=== PATIENT | female | born 1975 | race African-American/Black ===

== ENCOUNTER 2017-11-29 11:20 | Inpatient (IN) | payer OTHER ==
[2017-11-29 12:09] VITALS: BMI 32.8
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
[2017-11-29] MEDS ORDERED: chlordiazePOXIDE HCL 25 MG CAPSULE PO PRN (13:01)
[2017-11-29] MEDS ORDERED: NICOTINE POLACRILEX 2 MG GUM BUC PRN (13:01)
[2017-11-29] MEDS ORDERED: P-EPHED 60MG/TRIPROLIDI 2.5MG TABLET PO PRN (13:01)
[2017-11-29] MEDS ORDERED: MAG HYDROX/AL HYDROX/SIMETH 30 ML UNIT-DOSE CUP PO PRN (13:01)
[2017-11-29] MEDS ORDERED: LOPERAMIDE HCL 2 MG CAPSULE PO PRN (13:01)
[2017-11-29] MEDS ORDERED: MAGNESIUM HYDROX 2400MG/30ML ORAL SUSPENSION 30 ML CUP PO PRN (13:01)
[2017-11-29] MEDS ORDERED: chlordiazePOXIDE HCL 25 MG CAPSULE PO ONE (13:01)
[2017-11-29] MEDS ORDERED: MAGNESIUM CITRATE 300 ML BOTTLE PO PRN (13:01)
[2017-11-29] MEDS ORDERED: MENTHOL/PHENOL 1 EACH UD MM PRN (13:01)
[2017-11-29] MEDS ORDERED: guaiFENesin/D-METHORPHAN HB 10 ML UNIT-DOSE CUPS PO PRN (13:01)
[2017-11-29] MEDS ORDERED: BUDESONIDE/FORMETEROL FUMARATE 80/4.5 mcg INHALER IH SCH (14:00)
[2017-11-29] MEDS ORDERED: METHADONE HCL 10 MG TABLET (FOR DETOX USE ONLY) PO ONE ×2 (14:00→23:00)
[2017-11-29] MEDS: NICOTINE 14 MG/24 HOURS TOPICAL PATCH TD SCH (15:17)
--- NOTE | 2017-11-29 17:24 | EKG ---
Test Reason : Blood Pressure : / mmHG Vent. Rate : 072 BPM Atrial Rate : 072 BPM P-R Int : 124 ms QRS Dur : 096 ms QT Int : 410 ms P-R-T Axes : 060 064 054 degrees QTc Int : 448 ms NORMAL SINUS RHYTHM POSSIBLE LEFT ATRIAL ENLARGEMENT BORDERLINE ECG NO PREVIOUS ECGS AVAILABLE Confirmed by KEVIN TRIVEDI, MADDY ([id number]) on 11/29/2017 5:24:23 PM Referred By: Confirmed By:MADDY BROWN MD
[2017-11-29] MEDS: chlordiazePOXIDE HCL 25 MG CAPSULE PO SCH ×2 (18:52→22:09)
[2017-11-29 20:18] LABS: URINE APPEARANCE TURBID; URINE BILIRUBIN NEGATIVE (<2.0 mg/dL); URINE COLOR AMBER; URINE GLUCOSE (UA) NEGATIVE (NEGATIVE); URINE KETONE NEGATIVE (NEGATIVE); URINE LEUK ESTERASE TRACE (NEGATIVE); URINE NITRITE NEGATIVE (NEGATIVE); URINE PROTEIN NEGATIVE (NEGATIVE); URINE UROBILINOGEN NEGATIVE mg/dL (0.2-1.0)
[2017-11-29 20:33] LABS: CALCIUM OXALATE CRYSTALS RARE /hpf (NONE SEEN); EPI CELLS RARE /HPF (FEW); URINE HYALINE CAST 1 /lpf; URINE MUCUS MODERATE
[2017-11-29] MEDS: THIAMINE HCL 100 MG TABLET (FP) PO SCH (22:09)
[2017-11-30] MEDS: chlordiazePOXIDE HCL 25 MG CAPSULE PO SCH ×4 (05:27→22:37)
[2017-11-30] MEDS ORDERED: BACLOFEN 10 MG TABLET (FP) PO ONE (09:17)
[2017-11-30] MEDS ORDERED: METHADONE HCL 10 MG TABLET (FOR DETOX USE ONLY) PO SCH (10:00)
[2017-11-30 10:39] LABS: HEMATOCRIT 35.6 % (32.4-45.2); HEMOGLOBIN 11.4 GM/dL (10.7-15.3); MCH 30.2 pg (25.7-33.7); MCHC 32.1 g/dl (32.0-36.0); MEAN CELL VOLUME 94.1 fl (80-96); MEAN PLT VOLUME 8.5 fl (7.5-11.1); PLATELET COUNT 303 K/MM3 (134-434); RBC 3.79 M/mm3 (3.60-5.2); RDW 14.7 % (11.6-15.6); WHITE BLOOD COUNT 6.7 K/mm3 (4.0-10.0)
[2017-11-30] MEDS: PRENATAL VITAMINS W/ FOLIC ACID TABLET (FP) PO SCH (10:53)
[2017-11-30] MEDS: NICOTINE 14 MG/24 HOURS TOPICAL PATCH TD SCH (10:54)
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
[2017-11-30 11:43] LABS: ALK PHOS 61 U/L (45-117); ANION GAP 6 MMOL/L (8-16); BILIRUBIN,TOTAL 0.3 mg/dL (0.2-1); BLOOD UREA NITROGEN 8 mg/dL (7-18); CALCIUM 8.5 mg/dL (8.5-10.1); CHLORIDE 105 mmol/L (98-107); CO2 28 mmol/L (21-32); CREATININE 0.7 mg/dL (0.55-1.3); GLUCOSE,RANDOM 101 mg/dL (74-106); SGOT/AST 27 U/L (15-37); SGPT/ALT 31 U/L (13-61); SODIUM 139 mmol/L (136-145); TOT PROT 6.4 g/dl (6.4-8.2)
--- NOTE | 2017-11-30 13:42 | PN ---
[facility] CIWA - CIWA Score Nausea/Vomitin-No Nausea/No Vomiting Muscle Tremors: 4-Moderate,w/Arms Extend Anxiety: 3 Agitation: 3 Paroxysmal Sweats: 1-Minimal Palms Moist Orientation: 0-Oriented Tacttile Disturbances: 0-None Auditory Disturbances: 0-None Visual Disturbances: 0-None Headache: 1-Very Mild CIWA-Ar Total Score: 12 [facility] COWS - Scale Resting Pulse: 0= [place] 80 or Below Sweatin= Chills/Flushing Restless Observation: 1= Difficult to Sit Still Pupil Size: 0= Normal to Room Light Bone or Joint Aches: 1= Mild Discomfort Runny Nose/ Eye Tearin= Nasal Congestion GI Upset > 30mins: 2= Nausea/Diarrhea Tremor Observation of Outstretched Hands: 2= Slight Tremor Visible Yawning Observation: 1= 1-2x During Session Anxiety or Irritability: 1=Feels Anxious/Irritable Goose Flesh Skin: 3=Piloerection COWS Score: 13 [facility] Progress Note (SOAP) Subjective: muscle ache back pain sweat tremor trouble sleep at night Objective: 11/30/17 13:41 Vital Signs Temperature 97.9 F 11/30/17 10:35 Pulse Rate 67 11/30/17 10:35 Respiratory Rate 18 11/30/17 10:35 Blood Pressure 122/73 11/30/17 10:35 O2 Sat by Pulse Oximetry (%) Laboratory Last Values WBC 6.7 K/mm3 (4.0-10.0) 11/30/17 07:40 RBC 3.79 M/mm3 (3.60-5.2) 11/30/17 07:40 Hgb 11.4 GM/dL (10.7-15.3) 11/30/17 07:40 Hct 35.6 % (32.4-45.2) 11/30/17 07:40 MCV 94.1 fl (80-96) 11/30/17 07:40 MCH 30.2 pg (25.7-33.7) 11/30/17 07:40 MCHC 32.1 g/dl (32.0-36.0) 11/30/17 07:40 RDW 14.7 % (11.6-15.6) 11/30/17 07:40 Plt Count 303 K/MM3 (134-434) 11/30/17 07:40 MPV 8.5 fl (7.5-11.1) 11/30/17 07:40 Sodium 139 mmol/L (136-145) 11/30/17 07:40 Potassium 4.0 mmol/L (3.5-5.1) 11/30/17 07:40 Chloride 105 mmol/L (98-107) 11/30/17 07:40 Carbon Dioxide 28 mmol/L (21-32) 11/30/17 07:40 Anion Gap 6 MMOL/L (8-16) L 11/30/17 07:40 BUN 8 mg/dL (7-18) 11/30/17 07:40 Creatinine 0.7 mg/dL (0.55-1.3) 11/30/17 07:40 Creat Clearance w eGFR > 60 (>60) 11/30/17 07:40 Random Glucose 101 mg/dL (74-106) 11/30/17 07:40 Calcium 8.5 mg/dL (8.5-10.1) 11/30/17 07:40 Total Bilirubin 0.3 mg/dL (0.2-1) 11/30/17 07:40 AST 27 U/L (15-37) 11/30/17 07:40 ALT 31 U/L (13-61) 11/30/17 07:40 Alkaline Phosphatase 61 U/L (45-117) 11/30/17 07:40 Total Protein 6.4 g/dl (6.4-8.2) 11/30/17 07:40 Albumin 3.0 g/dl (3.4-5.0) L 11/30/17 07:40 Urine Color Pamela 11/29/17 16:55 Urine Appearance Turbid 11/29/17 16:55 Urine pH 5.0 (5.0-8.0) 11/29/17 16:55 Ur Specific [place] 1.019 (1.010-1.035) 11/29/17 16:55 Urine Protein Negative (NEGATIVE) 11/29/17 16:55 Urine Glucose (UA) Negative (NEGATIVE) 11/29/17 16:55 Urine Ketones Negative (NEGATIVE) 11/29/17 16:55 Urine Blood 1+ (NEGATIVE) H 11/29/17 16:55 Urine Nitrite Negative (NEGATIVE) 11/29/17 16:55 Urine Bilirubin Negative (<2.0 mg/dL) 11/29/17 16:55 Urine Urobilinogen Negative mg/dL (0.2-1.0) 11/29/17 16:55 Ur Leukocyte Esterase Trace (NEGATIVE) 11/29/17 16:55 Urine WBC (Auto) 17 /hpf (3-5) 11/29/17 16:55 Urine RBC (Auto) 1 /hpf (0-3) 11/29/17 16:55 Ur Epithelial Cells Rare /HPF (FEW) 11/29/17 16:55 Calcium Oxalate Crystal Rare /hpf (NONE SEEN) 11/29/17 16:55 Hyaline Casts 1 /lpf 11/29/17 16:55 Urine Mucus Moderate 11/29/17 16:55 Valproic Acid < 3.0 ug/ml (50-100) L 11/30/17 09:20 RPR Titer Nonreactive (NONREACTIVE) 11/30/17 07:40 HIV 1&2 Antibody Screen Negative 11/30/17 07:40 HIV P24 Antigen Negative 11/30/17 07:40 lab noted Assessment: 11/30/17 13:45 withdrawal sx Plan: continue detox
[2017-11-30] MEDS: CITALOPRAM HYDROBROMIDE 20 MG TABLET (FP) PO SCH (16:16)
[2017-11-30] MEDS: GABAPENTIN 100 MG CAPSULE (FP) PO SCH (16:16)
[2017-11-30] MEDS: MONTELUKAST NA 10 MG TABLET PO SCH (17:53)
[2017-11-30] MEDS: THIAMINE HCL 100 MG TABLET (FP) PO SCH (22:38)
[2017-11-30] MEDS: ACETAMINOPHEN 325 MG TABLET (FP) PO PRN (22:40)
[2017-12-01] MEDS: chlordiazePOXIDE HCL 25 MG CAPSULE PO SCH ×2 (06:43→11:13)
[2017-12-01] MEDS: CITALOPRAM HYDROBROMIDE 20 MG TABLET (FP) PO SCH (11:13)
[2017-12-01] MEDS: PRENATAL VITAMINS W/ FOLIC ACID TABLET (FP) PO SCH (11:13)
[2017-12-01] MEDS: GABAPENTIN 100 MG CAPSULE (FP) PO SCH (11:13)
[2017-12-01] MEDS: METHADONE HCL 5 MG TABLET (FOR DETOX USE ONLY) PO SCH (11:14)
[2017-12-01] MEDS: NICOTINE 14 MG/24 HOURS TOPICAL PATCH TD SCH (11:16)
[2017-12-01] MEDS ORDERED: DIVALPROEX SODIUM 250 MG TABLET E.C. PO STA (14:17)
--- NOTE | 2017-12-01 14:22 | PN ---
Psychiatric Progress Note Vital Signs: Vital Signs Period Temp Pulse Resp BP Sys/[place] Pulse Ox Last 24 Hr 96.5 F-98.2 F 68-86 16-20 94-136/57-79 Date of Session: 12/01/17 Chief Complaint:: My Depakote order HPI: Patient reports taking prior to admission: Celexa 20mg p[oqd. Depakote 250mg po bid. Trazodone 50m,g po qhs. Patioent refusing to restart Trazodone during Detox protocol Current Medications: Active Medications Generic Name Dose Route Start Last Admin Trade Name Freq PRN Reason Stop Dose Admin Acetaminophen 650 mg 11/29/17 13:01 11/30/17 22:40 Tylenol - PO 650 mg Q4H PRN Administration FEVER Al Hydroxide/Mg Hydroxide 30 ml 11/29/17 13:01 Mylanta Oral Suspension - PO Q6H PRN DYSPEPSIA Chlordiazepoxide HCl 15 mg 12/01/17 17:00 Librium - PO 12/02/17 11:01 [id number] NOEMI Chlordiazepoxide HCl 10 mg 12/02/17 17:00 Librium - PO 12/03/17 11:01 [id number] NOEMI Chlordiazepoxide HCl 25 mg 11/29/17 13:01 Librium - PO 12/02/17 13:01 Q4H PRN WITHDRAWAL(CONT SUBST) Citalopram Hydrobromide 20 mg 11/30/17 15:00 12/01/17 11:13 Celexa - PO 20 mg DAILY NOEMI Administration Divalproex Sodium 250 mg 12/01/17 22:00 Depakote - PO BID NOEMI Divalproex Sodium 250 mg 12/01/17 14:17 Depakote - PO 12/01/17 14:18 ONCE STA Eucalyptus/Menthol/Phenol/Sorbitol 1 each 11/29/17 13:01 Cepastat Lozenge - MM Q4H PRN SORE THROAT Gabapentin 100 mg 11/30/17 13:45 12/01/17 11:13 Neurontin - PO 100 mg DAILY NOEMI Administration Guaifenesin 10 ml 11/29/17 13:01 Robitussin Dm - PO Q6H PRN COUGH Hydroxyzine Pamoate 25 mg 11/29/17 13:01 Vistaril - PO Q4H PRN AGITATION Ibuprofen 400 mg 11/29/17 13:01 Motrin - PO Q6H PRN PAIN LEVEL 4-6 Loperamide HCl 4 mg 11/29/17 13:01 Imodium - PO Q6H PRN DIARRHEA Magnesium Citrate 300 ml 11/29/17 13:01 Citroma - PO Q48H PRN CONSTIPATION Magnesium Hydroxide 30 ml 11/29/17 13:01 Milk Of Magnesia - PO DAILY PRN CONSTIPATION Melatonin 5 mg 11/29/17 22:00 Melatonin PO HS PRN INSOMNIA Methadone HCl 15 mg 12/01/17 10:00 12/01/17 11:14 Dolophine - PO 12/02/17 10:01 15 mg DAILY NOEMI Administration Methadone HCl 5 mg 12/04/17 06:00 Dolophine - PO 12/04/17 06:01 DAILY@0600 NOEMI Methadone HCl 10 mg 12/03/17 10:00 Dolophine - PO 12/03/17 10:01 DAILY NOEMI Montelukast Sodium 10 mg 11/30/17 18:00 11/30/17 17:53 Singulair - PO 10 mg DAILY@1800 NOEMI Administration Nicotine 14 mg 11/29/17 13:15 12/01/17 11:16 Nicoderm Patch - TD 14 mg DAILY NOEMI Administration Nicotine Polacrilex 2 mg 11/29/17 13:01 11/29/17 15:26 Nicorette Gum - BUC 2 mg Q2H PRN Administration NICOTINE REPLACEMENT RX Non-Formulary Medication 1 each 11/29/17 14:45 12/01/17 11:15 Fluticasone/Salmeterol [Advair 250-50 Diskus] IH 1 each BID NOEMI Administration Multivit/Folic Acid/Iron 1 tab 11/30/17 10:00 12/01/17 11:13 Vitamins ([facility]) - PO 1 tab DAILY NOEMI Administration Pseudoephedrine/Triprolidine 1 combo 11/29/17 13:01 Actifed - PO TID PRN NASAL CONGESTION Thiamine HCl 100 mg 11/29/17 22:00 11/30/17 22:38 Vitamin B1 - PO 100 mg HS NOEMI Administration Medication(s) Change(s): Celexa 20mg p[oqd. Depakote 250mg po bid Mental Status Exam - Mental Status Exam Alert and Oriented to: Person Cognitive Function: Fair Patient Appearance: Well Groomed Mood: Apprehensive Patient Behavior: Cooperative Speech Pattern: Appropriate Voice Loudness: Normal Thought Process: Goal Oriented Thought Disorder: Being Controlled Hallucinations: Denies Suicidal Ideation: Denies Homicidal Ideation: Denies Insight/Judgement: Fair Appetite: Weight gain Muscle strength/Tone: Normal Gait/Station: Normal Additional Comments: Celexa 20mg p[oqd. Depakote 250mg po bid Psychiatric Treatment Plan - Problem List (1) Alcohol dependence with uncomplicated withdrawal Current Visit: Yes (2) Cannabis dependence Current Visit: Yes (3) Cocaine dependence Current Visit: Yes (4) Opioid dependence with withdrawal Current Visit: Yes (5) History of anemia Current Visit: Yes (6) MDD (major depressive disorder), recurrent episode, moderate Current Visit: Yes (7) Nicotine dependence Current Visit: Yes Qualifiers: Nicotine product type: cigarettes Substance use status: uncomplicated Qualified Code(s): F17.210 - Nicotine dependence, cigarettes, uncomplicated (8) PTSD (post-traumatic stress disorder) Current Visit: Yes (9) Anxiety disorder Current Visit: No (10) Non compliance w medication regimen Current Visit: No (11) Bipolar disorder Current Visit: No Initial treatment plan: Celexa 20mg p[oqd. Depakote 250mg po bid
[2017-12-01] MEDS: MONTELUKAST NA 10 MG TABLET PO SCH (17:25)
[2017-12-01] MEDS: chlordiazePOXIDE 5 MG CAPSULE PO SCH ×2 (17:25→22:14)
--- NOTE | 2017-12-01 17:37 | PN ---
[facility] CIWA - CIWA Score Nausea/Vomitin-No Nausea/No Vomiting Muscle Tremors: 3 Anxiety: 3 Agitation: 2 Paroxysmal Sweats: 1-Minimal Palms Moist Orientation: 0-Oriented Tacttile Disturbances: 1-Very Mild Itch/Numbness Auditory Disturbances: 0-None Visual Disturbances: 0-None Headache: 0-None Present CIWA-Ar Total Score: 10 [facility] COWS - Scale Resting Pulse: 0= [place] 80 or Below Sweatin= Chills/Flushing Restless Observation: 1= Difficult to Sit Still Pupil Size: 0= Normal to Room Light Bone or Joint Aches: 1= Mild Discomfort Runny Nose/ Eye Tearin= Nasal Congestion GI Upset > 30mins: 2= Nausea/Diarrhea Tremor Observation of Outstretched Hands: 1= Tremor [place], Not Seen Yawning Observation: 1= 1-2x During Session Anxiety or Irritability: 2=Irritable/Anxious Goose Flesh Skin: 0=Smooth Skin COWS Score: 10 [facility] Progress Note (SOAP) Subjective: back pain body ache sweat tremor Objective: 12/01/17 17:35 Vital Signs Temperature 97.9 F 12/01/17 13:22 Pulse Rate 71 12/01/17 13:22 Respiratory Rate 18 12/01/17 13:22 Blood Pressure 136/79 12/01/17 13:22 O2 Sat by Pulse Oximetry (%) Laboratory Last Values WBC 6.7 K/mm3 (4.0-10.0) 11/30/17 07:40 RBC 3.79 M/mm3 (3.60-5.2) 11/30/17 07:40 Hgb 11.4 GM/dL (10.7-15.3) 11/30/17 07:40 Hct 35.6 % (32.4-45.2) 11/30/17 07:40 MCV 94.1 fl (80-96) 11/30/17 07:40 MCH 30.2 pg (25.7-33.7) 11/30/17 07:40 MCHC 32.1 g/dl (32.0-36.0) 11/30/17 07:40 RDW 14.7 % (11.6-15.6) 11/30/17 07:40 Plt Count 303 K/MM3 (134-434) 11/30/17 07:40 MPV 8.5 fl (7.5-11.1) 11/30/17 07:40 Sodium 139 mmol/L (136-145) 11/30/17 07:40 Potassium 4.0 mmol/L (3.5-5.1) 11/30/17 07:40 Chloride 105 mmol/L (98-107) 11/30/17 07:40 Carbon Dioxide 28 mmol/L (21-32) 11/30/17 07:40 Anion Gap 6 MMOL/L (8-16) L 11/30/17 07:40 BUN 8 mg/dL (7-18) 11/30/17 07:40 Creatinine 0.7 mg/dL (0.55-1.3) 11/30/17 07:40 Creat Clearance w eGFR > 60 (>60) 11/30/17 07:40 Random Glucose 101 mg/dL (74-106) 11/30/17 07:40 Calcium 8.5 mg/dL (8.5-10.1) 11/30/17 07:40 Total Bilirubin 0.3 mg/dL (0.2-1) 11/30/17 07:40 AST 27 U/L (15-37) 11/30/17 07:40 ALT 31 U/L (13-61) 11/30/17 07:40 Alkaline Phosphatase 61 U/L (45-117) 11/30/17 07:40 Total Protein 6.4 g/dl (6.4-8.2) 11/30/17 07:40 Albumin 3.0 g/dl (3.4-5.0) L 11/30/17 07:40 Urine Color Pamela 11/29/17 16:55 Urine Appearance Turbid 11/29/17 16:55 Urine pH 5.0 (5.0-8.0) 11/29/17 16:55 Ur Specific [place] 1.019 (1.010-1.035) 11/29/17 16:55 Urine Protein Negative (NEGATIVE) 11/29/17 16:55 Urine Glucose (UA) Negative (NEGATIVE) 11/29/17 16:55 Urine Ketones Negative (NEGATIVE) 11/29/17 16:55 Urine Blood 1+ (NEGATIVE) H 11/29/17 16:55 Urine Nitrite Negative (NEGATIVE) 11/29/17 16:55 Urine Bilirubin Negative (<2.0 mg/dL) 11/29/17 16:55 Urine Urobilinogen Negative mg/dL (0.2-1.0) 11/29/17 16:55 Ur Leukocyte Esterase Trace (NEGATIVE) 11/29/17 16:55 Urine WBC (Auto) 17 /hpf (3-5) 11/29/17 16:55 Urine RBC (Auto) 1 /hpf (0-3) 11/29/17 16:55 Ur Epithelial Cells Rare /HPF (FEW) 11/29/17 16:55 Calcium Oxalate Crystal Rare /hpf (NONE SEEN) 11/29/17 16:55 Hyaline Casts 1 /lpf 11/29/17 16:55 Urine Mucus Moderate 11/29/17 16:55 Valproic Acid < 3.0 ug/ml (50-100) L 11/30/17 09:20 RPR Titer Nonreactive (NONREACTIVE) 11/30/17 07:40 HIV 1&2 Antibody Screen Negative 11/30/17 07:40 HIV P24 Antigen Negative 11/30/17 07:40 lab lab noted Assessment: 12/01/17 17:36 withdrawal sx Plan: continuue detox
[2017-12-01] MEDS: THIAMINE HCL 100 MG TABLET (FP) PO SCH (22:07)
[2017-12-01] MEDS: IBUPROFEN 400 MG TABLET (FP) PO PRN (22:09)
[2017-12-01] MEDS: DIVALPROEX SODIUM 250 MG TABLET E.C. PO SCH (22:10)
[2017-12-01] MEDS: hydrOXYzine PAMOATE 25 MG CAPSULE (FP) PO PRN (22:10)
[2017-12-02] MEDS: chlordiazePOXIDE 5 MG CAPSULE PO SCH ×2 (05:36→10:50)
--- NOTE | 2017-12-02 09:43 | PN ---
[facility] Progress Note (SOAP) Subjective: sweats shakes interrupted sleep chronic body aches Objective: 12/02/17 09:43 Vital Signs Temperature 97.3 F L 12/02/17 07:09 Pulse Rate 66 12/02/17 07:09 Respiratory Rate 18 12/02/17 07:09 Blood Pressure 104/55 L 12/02/17 07:09 O2 Sat by Pulse Oximetry (%) aaox3 ambulating no acute distress Assessment: 12/02/17 09:43 withdrawal sx Plan: continue detox increase fluids motrin prn
[2017-12-02] MEDS: GABAPENTIN 100 MG CAPSULE (FP) PO SCH (10:49)
[2017-12-02] MEDS: CITALOPRAM HYDROBROMIDE 20 MG TABLET (FP) PO SCH (10:49)
[2017-12-02] MEDS: DIVALPROEX SODIUM 250 MG TABLET E.C. PO SCH ×2 (10:49→22:02)
[2017-12-02] MEDS: PRENATAL VITAMINS W/ FOLIC ACID TABLET (FP) PO SCH (10:51)
[2017-12-02] MEDS: METHADONE HCL 5 MG TABLET (FOR DETOX USE ONLY) PO SCH (10:51)
[2017-12-02] MEDS: NICOTINE 14 MG/24 HOURS TOPICAL PATCH TD SCH (10:51)
[2017-12-02] MEDS: ACETAMINOPHEN 325 MG TABLET (FP) PO PRN (15:15)
[2017-12-02] MEDS: hydrOXYzine PAMOATE 25 MG CAPSULE (FP) PO PRN ×2 (15:16→22:02)
[2017-12-02] MEDS: MONTELUKAST NA 10 MG TABLET PO SCH (18:33)
[2017-12-02] MEDS: chlordiazePOXIDE HCL 10 MG CAPSULE PO SCH ×2 (18:33→22:01)
[2017-12-02] MEDS: IBUPROFEN 400 MG TABLET (FP) PO PRN (22:02)
[2017-12-02] MEDS: THIAMINE HCL 100 MG TABLET (FP) PO SCH (22:02)
[2017-12-02] MEDS: MELATONIN 5 MG TABLETS PO PRN (22:25)
[2017-12-03] MEDS: chlordiazePOXIDE HCL 10 MG CAPSULE PO SCH ×2 (05:50→10:42)
--- NOTE | 2017-12-03 09:52 | PN ---
[facility] Progress Note (SOAP) Subjective: too groggy sweats Objective: 12/03/17 09:52 Vital Signs Temperature 97.9 F 12/03/17 07:22 Pulse Rate 75 12/03/17 07:22 Respiratory Rate 18 12/03/17 07:22 Blood Pressure 103/69 12/03/17 07:22 O2 Sat by Pulse Oximetry (%) aaox3 ambulating no acute distress Assessment: 12/03/17 09:52 mild withdrawal sx Plan: continue detox increase fluids d/c in am
[2017-12-03] MEDS ORDERED: METHADONE HCL 5 MG TABLET (FOR DETOX USE ONLY) PO SCH (10:00)
[2017-12-03] MEDS ORDERED: METHADONE HCL 10 MG TABLET (FOR DETOX USE ONLY) PO SCH (10:00)
[2017-12-03] MEDS: CITALOPRAM HYDROBROMIDE 20 MG TABLET (FP) PO SCH (10:41)
[2017-12-03] MEDS: PRENATAL VITAMINS W/ FOLIC ACID TABLET (FP) PO SCH (10:41)
[2017-12-03] MEDS: DIVALPROEX SODIUM 250 MG TABLET E.C. PO SCH ×2 (10:41→22:13)
[2017-12-03] MEDS: NICOTINE 14 MG/24 HOURS TOPICAL PATCH TD SCH (10:42)
[2017-12-03] MEDS: GABAPENTIN 100 MG CAPSULE (FP) PO SCH (10:42)
[2017-12-03] MEDS ORDERED: BUDESONIDE/FORMETEROL FUMARATE 80/4.5 mcg INHALER IH SCH (10:45)
[2017-12-03] MEDS: MONTELUKAST NA 10 MG TABLET PO SCH (22:12)
[2017-12-03] MEDS: THIAMINE HCL 100 MG TABLET (FP) PO SCH (22:12)
[2017-12-03] MEDS: MELATONIN 5 MG TABLETS PO PRN (22:14)
[2017-12-04] MEDS ORDERED: METHADONE HCL 5 MG TABLET (FOR DETOX USE ONLY) PO SCH (06:00)
--- NOTE | 2017-12-04 08:46 | DS ---
[facility] Detox Discharge Summary Admission Date: 11/29/17 Discharge Date: 12/04/17 - History Present History: Alcohol Dependence, Cannabis Dependence, Cocaine Dependence, Opioid Dependence - Physical Exam Results Vital Signs: Vital Signs Temperature 97.7 F 12/03/17 22:57 Pulse Rate 73 12/03/17 22:57 Respiratory Rate 18 12/04/17 08:01 Blood Pressure 105/62 12/03/17 22:57 O2 Sat by Pulse Oximetry (%) - Treatment Hospital Course: Detox Protocol Followed, Detoxed Safely, Responded well, Discharged Condition Good, Rehab Referral Accepted - Medication Discharge Medications: Ambulatory Orders Citalopram Hydrobromide [Celexa -] 20 mg PO DAILY #30 tablet 09/23/17 Divalproex [Depakote -] 250 mg PO BID #60 tablet.ec 09/23/17 Fluticasone/Salmeterol [Advair 250-50 Diskus] 1 each IH PRN 11/29/17 Montelukast Sodium [Singulair] 10 mg PO DAILY 11/29/17 traZODone HCL [Trazodone HCl] 50 mg PO HS 11/29/17 Citalopram Hydrobromide [Celexa -] 20 mg PO DAILY #30 tablet 11/30/17 - Diagnosis (1) ASTHMA Current Visit: Yes Status: Active (2) Alcohol dependence with uncomplicated withdrawal Current Visit: Yes Status: Chronic (3) Cannabis dependence Current Visit: Yes Status: Acute (4) Cocaine dependence Current Visit: Yes Status: Chronic (5) Opioid dependence with withdrawal Current Visit: Yes Status: Chronic (6) Bronchial asthma Current Visit: Yes Status: Chronic (7) History of anemia Current Visit: Yes Status: Chronic (8) MDD (major depressive disorder), recurrent episode, moderate Current Visit: Yes Status: Chronic (9) Nicotine dependence Current Visit: Yes Status: Chronic Qualifiers: Nicotine product type: cigarettes Substance use status: uncomplicated Qualified Code(s): F17.210 - Nicotine dependence, cigarettes, uncomplicated (10) PTSD (post-traumatic stress disorder) Current Visit: Yes Status: Chronic (11) Anxiety disorder Current Visit: No Status: Active (12) DEPRESSION Current Visit: No Status: Active (13) PTSD Current Visit: No Status: Active (14) Non compliance w medication regimen Current Visit: No Status: Acute (15) Bipolar disorder Current Visit: No Status: Suspected (16) Bipolar disorder Current Visit: No Status: Ruled-out - AMA Did Patient Leave Against Medical Advice: No
[2017-12-04] MEDS: GABAPENTIN 100 MG CAPSULE (FP) PO SCH (10:02)
[2017-12-04] MEDS: CITALOPRAM HYDROBROMIDE 20 MG TABLET (FP) PO SCH (10:02)
[2017-12-04] MEDS: PRENATAL VITAMINS W/ FOLIC ACID TABLET (FP) PO SCH (10:02)
[2017-12-04] MEDS: DIVALPROEX SODIUM 250 MG TABLET E.C. PO SCH (10:02)
[2017-12-04 11:00] VITALS: BP 111/61; PULSE 77; TEMP 98.6
== END 2017-12-04 10:13 | disposition home or self-care (01) | DRG 950 ==
LOC: YASAS 11:20 → Y6N 12:42
PROC: [UNRECOGNIZED PROCEDURE] (principal; 2017-11-29)
DX: F11.23 Opioid dependence with withdrawal (principal); F10.230 Alcohol dependence with withdrawal, uncomplicated; F14.20 Cocaine dependence, uncomplicated; F12.20 Cannabis dependence, uncomplicated; F17.210 Nicotine dependence, cigarettes, uncomplicated; F33.1 Major depressive disorder, recurrent, moderate; F43.10 Post-traumatic stress disorder, unspecified; F41.9 Anxiety disorder, unspecified; J45.909 Unspecified asthma, uncomplicated; Z91.14 Patient's other noncompliance with medication regimen
CPT/HCPCS: 36415; 80053; 80164; 81003; 81015; 85027; 86593; 87389; 93005; 93010; J0475

== ENCOUNTER 2018-01-20 19:57 | Inpatient (IN) | payer OTHER ==
[2018-01-20 20:07] VITALS: BMI 32.1
--- NOTE | 2018-01-20 20:40 | HP ---
CIWA Score Nausea/Vomitin Muscle Tremors: 3 Anxiety: 4-Mod. Anxious/Guarded Agitation: 3 Paroxysmal Sweats: 1-Minimal Palms Moist Orientation: 0-Oriented Tacttile Disturbances: 0-None Auditory Disturbances: 0-None Visual Disturbances: 0-None Headache: 0-None Present CIWA-Ar Total Score: 13 - Admission Criteria OASAS Guidelines: Admission for Medically Managed Detox: Requires at least one of the followin. CIWA greater than 12 2. Seizures within the past 24 hours 3. Delirium tremens within the past 24 hours 4. Hallucinations within the past 24 hours 5. Acute intervention needed for co occurring medical disorder 6. Acute intervention needed for co occurring psychiatric disorder 7. Severe withdrawal that cannot be handled at a lower level of care (continued vomiting, continued diarrhea, abnormal vital signs) requiring intravenous medication and/or fluids 8. Patient presents the following: CIWA greater than 12 Admission Criteria Met: Admission criteria met Admission ROS BHS - HPI Chief Complaint: " here so I don't go through any withdrawals. I need to detox off of alcohol" Allergies/Adverse Reactions: Allergies Allergy/AdvReac Type Severity Reaction Status Date / Time No Known Allergies Allergy Verified 01/20/18 20:05 History of Present Illness: 42 yo female with h/o asthma, back pain, and anemia here seeking alcohol detox. Says she is not using much opiates. Alcohol- says drinking 5 large beer cans- 24 oz. and for the last 2 days drinking all day for no reason per pt. Heroin- not using much, one bag yesterday, otherwise only occ use cocaine: spent $500 in the last 2 days THC- did not smoke recently, last use 2 weeks ago Denies My use, Bup use Urine tox pos for multiple substances- denies Suboxone, oxycodone..says she only had crack/heroin a small amount RAMON= 0, last drink 7: 30 pm DUR/ISTOP: no controlled medications - Ebola screening Have you been sick,other than usual withdrawal symptoms: No - Review of Systems Constitutional: No Symptoms Reported EENT: reports: No Symptoms Reported Respiratory: reports: No Symptoms reported Cardiac: reports: No Symptoms Reported GI: reports: No Symptoms Reported : reports: No Symptoms Reported Musculoskeletal: reports: No Symptoms Reported Integumentary: reports: No Symptoms Reported Neuro: reports: No Symptoms reported Endocrine: reports: No Symptoms Reported Hematology: reports: No Symptoms Reported, Anemia Psychiatric: reports: No Sypmtoms Reported Patient History - Patient Medical History Hx Anemia: Yes Hx Asthma: Yes Hx Chronic Obstructive Pulmonary Disease (COPD): No Hx Cancer: No Hx Cardiac Disorders: No Hx Hypertension: No Hx Hypercholesterolemia: No Hx Pacemaker: No HX Cerebrovascular Accident: No Hx Seizures: No Hx Diabetes: No Hx Gastrointestinal Disorders: No Hx Liver Disease: No Hx Genitourinary Disorders: No Hx Sexually Transmitted Disorders: No Hx Renal Disease (ESRD): No Hx Thyroid Disease: No Hx Human Immunodeficiency Virus (HIV): No Hx Hepatitis C: No Hx Depression: Yes (on meds, history of hospitalizations) Hx Suicide Attempt: Yes Hx Bipolar Disorder: No Hx Schizophrenia: No - Patient Surgical History Past Surgical History: No Hx Neurologic Surgery: No Hx Cataract Extraction: No Hx Cardiac Surgery: No Hx Lung Surgery: No Hx Breast Surgery: No Hx Breast Biopsy: No Hx Abdominal Surgery: No Hx Appendectomy: No Hx Cholecystectomy: No Hx Genitourinary Surgery: No Hx Section: No Hx Orthopedic Surgery: No Anesthesia Reaction: No - PPD History Previous Implant?: Yes Documented Results: Negative w/proof Date: 12/01/17 - Reproductive History Last Menstrual Period: 01/23/13 Patient : No - Smoking Cessation Smoking history: Current every day smoker Have you smoked in the past 12 months: Yes Aproximately how many cigarettes per day: 8 Hx Chewing Tobacco Use: No Initiated information on smoking cessation: Yes 'Breaking Loose' booklet given: 01/20/18 - Substances Abused Alcohol Route: Oral Frequency: Daily Amount used: beer- 2 six pack Age of first use: 15 Date of Last Use: 01/20/18 Heroin Route: Inhalation Frequency: 1-2 times per week Amount used: 4 snifs Age of first use: 19 Date of Last Use: 01/20/18 Crack Route: Smoking Frequency: Daily Amount used: 2 bags Age of first use: 26 Date of Last Use: 01/20/18 Family Disease History - Family Disease History Family Disease History: [place]: Mother (bio mom ,), Other: Father ( (on Row)), Mother, Brother (unknown if medical problems), Sister (unknown if medical problems), Daughter (three - eczema, mental problems) Admission Physical Exam BHS - Vital Signs Vital Signs: Vital Signs - 24 hr 01/20/18 20:04 Temperature 98.1 F Pulse Rate 115 H Respiratory 18 Rate Blood Pressure 156/96 - Physical General Appearance: Yes: Within Normal Limits HEENTM: Yes: Within Normal Limits, Normocephalic, Normal Voice, KATH Respiratory: Yes: Within Normal Limits, Lungs Clear Neck: Yes: Within Normal Limits Breast: Yes: Breast Exam Deferred Cardiology: Yes: Within Normal Limits Abdominal: Yes: Within Normal Limits, Protuberent Genitourinary: Yes: Within Normal Limits Musculoskeletal: Yes: Within Normal Limits Extremities: Yes: Within Normal Limits Neurological: Yes: Within Normal Limits Integumentary: Yes: Within Normal Limits, Other (has a skin tag R elbow area, large hyperpigmented area on back) - Diagnostic (1) ASTHMA Current Visit: No Status: Active (2) Anxiety disorder Current Visit: No Status: Active (3) PTSD Current Visit: No Status: Active (4) Alcohol dependence with uncomplicated withdrawal Current Visit: No Status: Chronic (5) History of anemia Current Visit: No Status: Chronic (6) Nicotine dependence Current Visit: No Status: Chronic Qualifiers: Nicotine product type: cigarettes Substance use status: uncomplicated Qualified Code(s): F17.210 - Nicotine dependence, cigarettes, uncomplicated BHS Breath Alcohol Content Breath Alcohol Content: 0 Urine Pregancy Test - Result Urine Test Results: Negative- NO Line Present Urine Drug Screen - Results Drug Screen Negative: No Urine Drug Screen Results: THC-Marijuana, LAURI-Cocaine, OPI-Opiates, BAR- Barbiturates, OXY-Oxycodone, BUP-Suboxone
[2018-01-20] MEDS ORDERED: LOPERAMIDE HCL 2 MG CAPSULE PO PRN (20:49)
[2018-01-20] MEDS ORDERED: ACETAMINOPHEN 325 MG TABLET (FP) PO PRN (20:49)
[2018-01-20] MEDS ORDERED: MAG HYDROX/AL HYDROX/SIMETH 30 ML UNIT-DOSE CUP PO PRN (20:49)
[2018-01-20] MEDS ORDERED: IBUPROFEN 400 MG TABLET (FP) PO PRN (20:49)
[2018-01-20] MEDS ORDERED: MAGNESIUM CITRATE 300 ML BOTTLE PO PRN (20:49)
[2018-01-20] MEDS ORDERED: MAGNESIUM HYDROX 2400MG/30ML ORAL SUSPENSION 30 ML CUP PO PRN (20:49)
[2018-01-20] MEDS ORDERED: MENTHOL/PHENOL 1 EACH UD MM PRN (20:49)
[2018-01-20] MEDS ORDERED: guaiFENesin/D-METHORPHAN HB 10 ML UNIT-DOSE CUPS PO PRN (20:49)
[2018-01-20] MEDS ORDERED: P-EPHED 60MG/TRIPROLIDI 2.5MG TABLET PO PRN (20:49)
[2018-01-20] MEDS ORDERED: chlordiazePOXIDE HCL 25 MG CAPSULE PO PRN (20:51)
[2018-01-20] MEDS ORDERED: ALBUTEROL SO4 8 GM HFA INHALER IH PRN (20:54)
[2018-01-20] MEDS ORDERED: MELATONIN 5 MG TABLETS PO PRN (22:00)
[2018-01-20] MEDS: traZODone HCL 50 MG TABLET (FP) PO SCH (22:11)
[2018-01-20] MEDS: chlordiazePOXIDE HCL 25 MG CAPSULE PO SCH (22:12)
[2018-01-20] MEDS: DIVALPROEX SODIUM 250 MG TABLET E.C. PO SCH (22:18)
[2018-01-20] MEDS: THIAMINE HCL 100 MG TABLET (FP) PO SCH (22:39)
[2018-01-20] MEDS: BUDESONIDE/FORMETEROL FUMARATE 80/4.5 mcg INHALER IH SCH (22:39)
[2018-01-21 01:05] LABS: URINE APPEARANCE TURBID; URINE BILIRUBIN NEGATIVE (<2.0 mg/dL); URINE COLOR YELLOW; URINE GLUCOSE (UA) NEGATIVE (NEGATIVE); URINE KETONE NEGATIVE (NEGATIVE); URINE LEUK ESTERASE 2+ (NEGATIVE); URINE NITRITE NEGATIVE (NEGATIVE); URINE PROTEIN 1+ (NEGATIVE)
[2018-01-21 01:39] LABS: EPI CELLS FEW /HPF (FEW); URINE BACTERIA FEW /hpf (NONE SEEN); URINE MUCUS MANY
[2018-01-21] MEDS: chlordiazePOXIDE HCL 25 MG CAPSULE PO SCH ×4 (05:14→23:24)
[2018-01-21] MEDS: CITALOPRAM HYDROBROMIDE 20 MG TABLET (FP) PO SCH (10:17)
[2018-01-21] MEDS: DIVALPROEX SODIUM 250 MG TABLET E.C. PO SCH ×2 (10:17→22:15)
[2018-01-21] MEDS: PRENATAL VITAMINS W/ FOLIC ACID TABLET (FP) PO SCH (10:17)
[2018-01-21] MEDS: BUDESONIDE/FORMETEROL FUMARATE 80/4.5 mcg INHALER IH SCH ×2 (10:18→22:30)
[2018-01-21 10:45] LABS: HEMATOCRIT 38.5 % (32.4-45.2); HEMOGLOBIN 12.4 GM/dL (10.7-15.3); MCH 30.5 pg (25.7-33.7); MCHC 32.3 g/dl (32.0-36.0); MEAN CELL VOLUME 94.6 fl (80-96); PLATELET COUNT 337 K/MM3 (134-434); RBC 4.07 M/mm3 (3.60-5.2); RDW 15.5 % (11.6-15.6); WHITE BLOOD COUNT 6.1 K/mm3 (4.0-10.0)
[2018-01-21 11:12] LABS: ALBUMIN 3.5 g/dl (3.4-5.0); ALK PHOS 78 U/L (45-117); ANION GAP 8 MMOL/L (8-16); BILIRUBIN,TOTAL 0.2 mg/dL (0.2-1); BLOOD UREA NITROGEN 13 mg/dL (7-18); CALCIUM 8.7 mg/dL (8.5-10.1); CHLORIDE 102 mmol/L (98-107); CO2 31 mmol/L (21-32); CREATININE 0.7 mg/dL (0.55-1.3); GLUCOSE,RANDOM 99 mg/dL (74-106); POTASSIUM 3.8 mmol/L (3.5-5.1); SGOT/AST 40 U/L (15-37); SGPT/ALT 57 U/L (13-61); SODIUM 141 mmol/L (136-145)
--- NOTE | 2018-01-21 11:39 | PN ---
[facility] CIWA - CIWA Score Nausea/Vomitin-No Nausea/No Vomiting Muscle Tremors: 2 Anxiety: 1-Mildly Anxious Agitation: 2 Paroxysmal Sweats: 1-Minimal Palms Moist Orientation: 1-Uncertain about Date Tacttile Disturbances: 1-Very Mild Itch/Numbness Auditory Disturbances: 1-Very Mild Visual Disturbances: 0-None Headache: 1-Very Mild CIWA-Ar Total Score: 10 S Progress Note (SOAP) Subjective: tremor sweat trouble sleep at night feeling low energy mild gi distress tolerate food and fluid well burning and frequencies of urination Objective: 01/21/18 11:40 Vital Signs Temperature 97.7 F 01/21/18 09:08 Pulse Rate 77 01/21/18 09:08 Respiratory Rate 18 01/21/18 09:08 Blood Pressure 94/61 01/21/18 09:08 O2 Sat by Pulse Oximetry (%) Laboratory Last Values WBC 6.1 K/mm3 (4.0-10.0) 01/21/18 07:30 RBC 4.07 M/mm3 (3.60-5.2) 01/21/18 07:30 Hgb 12.4 GM/dL (10.7-15.3) 01/21/18 07:30 Hct 38.5 % (32.4-45.2) 01/21/18 07:30 MCV 94.6 fl (80-96) 01/21/18 07:30 MCH 30.5 pg (25.7-33.7) 01/21/18 07:30 MCHC 32.3 g/dl (32.0-36.0) 01/21/18 07:30 RDW 15.5 % (11.6-15.6) 01/21/18 07:30 Plt Count 337 K/MM3 (134-434) 01/21/18 07:30 MPV 8.0 fl (7.5-11.1) 01/21/18 07:30 Sodium 141 mmol/L (136-145) 01/21/18 07:30 Potassium 3.8 mmol/L (3.5-5.1) 01/21/18 07:30 Chloride 102 mmol/L (98-107) 01/21/18 07:30 Carbon Dioxide 31 mmol/L (21-32) 01/21/18 07:30 Anion Gap 8 MMOL/L (8-16) 01/21/18 07:30 BUN 13 mg/dL (7-18) 01/21/18 07:30 Creatinine 0.7 mg/dL (0.55-1.3) 01/21/18 07:30 Creat Clearance w eGFR > 60 (>60) 01/21/18 07:30 Random Glucose 99 mg/dL (74-106) 01/21/18 07:30 Calcium 8.7 mg/dL (8.5-10.1) 01/21/18 07:30 Total Bilirubin 0.2 mg/dL (0.2-1) 01/21/18 07:30 AST 40 U/L (15-37) H 01/21/18 07:30 ALT 57 U/L (13-61) 01/21/18 07:30 Alkaline Phosphatase 78 U/L (45-117) 01/21/18 07:30 Total Protein 7.0 g/dl (6.4-8.2) 01/21/18 07:30 Albumin 3.5 g/dl (3.4-5.0) 01/21/18 07:30 Urine Color Yellow 01/20/18 23:45 Urine Appearance Turbid 01/20/18 23:45 Urine pH 5.0 (5.0-8.0) 01/20/18 23:45 Ur Specific [place] 1.027 (1.010-1.035) 01/20/18 23:45 Urine Protein 1+ (NEGATIVE) H 01/20/18 23:45 Urine Glucose (UA) Negative (NEGATIVE) 01/20/18 23:45 Urine Ketones Negative (NEGATIVE) 01/20/18 23:45 Urine Blood 1+ (NEGATIVE) H 01/20/18 23:45 Urine Nitrite Negative (NEGATIVE) 01/20/18 23:45 Urine Bilirubin Negative (<2.0 mg/dL) 01/20/18 23:45 Urine Urobilinogen 2.0 mg/dL (0.2-1.0) H 01/20/18 23:45 Ur Leukocyte Esterase 2+ (NEGATIVE) H 01/20/18 23:45 Urine WBC (Auto) 190 /hpf (3-5) 01/20/18 23:45 Urine RBC (Auto) 15 /hpf (0-3) 01/20/18 23:45 Ur Epithelial Cells Few /HPF (FEW) 01/20/18 23:45 Urine Bacteria Few /hpf (NONE SEEN) 01/20/18 23:45 Urine Mucus Many 01/20/18 23:45 uti lab noted 01/21/18 11:45 Assessment: 01/21/18 11:47 withdrawal sx uti Plan: continue detox
[2018-01-21] MEDS: SULFAMETHOXAZOLE/TRIMETHOPRIM 800MG/160MG D.S. TABLET PO SCH ×2 (13:29→22:15)
[2018-01-21] MEDS: MONTELUKAST NA 10 MG TABLET PO SCH (22:15)
[2018-01-21] MEDS: THIAMINE HCL 100 MG TABLET (FP) PO SCH (22:15)
[2018-01-21] MEDS: traZODone HCL 50 MG TABLET (FP) PO SCH (22:15)
[2018-01-22] MEDS: chlordiazePOXIDE HCL 25 MG CAPSULE PO SCH ×3 (06:01→17:26)
--- NOTE | 2018-01-22 10:23 | PN ---
S CIWA - CIWA Score Nausea/Vomitin-No Nausea/No Vomiting Muscle Tremors: 3 Anxiety: 1-Mildly Anxious Agitation: 1-Slight > Activity Paroxysmal Sweats: 1-Minimal Palms Moist Orientation: 0-Oriented Tacttile Disturbances: 0-None Auditory Disturbances: 0-None Visual Disturbances: 0-None Headache: 1-Very Mild CIWA-Ar Total Score: 7 BHS Progress Note (SOAP) Subjective: tremor sweat mild gi distress reported coffee spilled on right index and mid fingers denies pain "under cold water" immediately index and mid fingers skin intact no redness no swell full range of motion able to write and draw and coloring Objective: 01/22/18 10:26 Vital Signs Temperature 98.2 F 01/22/18 09:49 Pulse Rate 82 01/22/18 09:49 Respiratory Rate 17 01/22/18 09:49 Blood Pressure 114/63 01/22/18 09:49 O2 Sat by Pulse Oximetry (%) Laboratory Last Values WBC 6.1 K/mm3 (4.0-10.0) 01/21/18 07:30 RBC 4.07 M/mm3 (3.60-5.2) 01/21/18 07:30 Hgb 12.4 GM/dL (10.7-15.3) 01/21/18 07:30 Hct 38.5 % (32.4-45.2) 01/21/18 07:30 MCV 94.6 fl (80-96) 01/21/18 07:30 MCH 30.5 pg (25.7-33.7) 01/21/18 07:30 MCHC 32.3 g/dl (32.0-36.0) 01/21/18 07:30 RDW 15.5 % (11.6-15.6) 01/21/18 07:30 Plt Count 337 K/MM3 (134-434) 01/21/18 07:30 MPV 8.0 fl (7.5-11.1) 01/21/18 07:30 Sodium 141 mmol/L (136-145) 01/21/18 07:30 Potassium 3.8 mmol/L (3.5-5.1) 01/21/18 07:30 Chloride 102 mmol/L (98-107) 01/21/18 07:30 Carbon Dioxide 31 mmol/L (21-32) 01/21/18 07:30 Anion Gap 8 MMOL/L (8-16) 01/21/18 07:30 BUN 13 mg/dL (7-18) 01/21/18 07:30 Creatinine 0.7 mg/dL (0.55-1.3) 01/21/18 07:30 Creat Clearance w eGFR > 60 (>60) 01/21/18 07:30 Random Glucose 99 mg/dL (74-106) 01/21/18 07:30 Calcium 8.7 mg/dL (8.5-10.1) 01/21/18 07:30 Total Bilirubin 0.2 mg/dL (0.2-1) 01/21/18 07:30 AST 40 U/L (15-37) H 01/21/18 07:30 ALT 57 U/L (13-61) 01/21/18 07:30 Alkaline Phosphatase 78 U/L (45-117) 01/21/18 07:30 Total Protein 7.0 g/dl (6.4-8.2) 01/21/18 07:30 Albumin 3.5 g/dl (3.4-5.0) 01/21/18 07:30 Urine Color Yellow 01/20/18 23:45 Urine Appearance Turbid 01/20/18 23:45 Urine pH 5.0 (5.0-8.0) 01/20/18 23:45 Ur Specific [place] 1.027 (1.010-1.035) 01/20/18 23:45 Urine Protein 1+ (NEGATIVE) H 01/20/18 23:45 Urine Glucose (UA) Negative (NEGATIVE) 01/20/18 23:45 Urine Ketones Negative (NEGATIVE) 01/20/18 23:45 Urine Blood 1+ (NEGATIVE) H 01/20/18 23:45 Urine Nitrite Negative (NEGATIVE) 01/20/18 23:45 Urine Bilirubin Negative (<2.0 mg/dL) 01/20/18 23:45 Urine Urobilinogen 2.0 mg/dL (0.2-1.0) H 01/20/18 23:45 Ur Leukocyte Esterase 2+ (NEGATIVE) H 01/20/18 23:45 Urine WBC (Auto) 190 /hpf (3-5) 01/20/18 23:45 Urine RBC (Auto) 15 /hpf (0-3) 01/20/18 23:45 Ur Epithelial Cells Few /HPF (FEW) 01/20/18 23:45 Urine Bacteria Few /hpf (NONE SEEN) 01/20/18 23:45 Urine Mucus Many 01/20/18 23:45 RPR Titer Nonreactive (NONREACTIVE) 01/21/18 07:30 lab noted uti Assessment: 01/22/18 10:27 withdrawal sx Plan: continue detox uti
[2018-01-22] MEDS: PRENATAL VITAMINS W/ FOLIC ACID TABLET (FP) PO SCH (10:31)
[2018-01-22] MEDS: SULFAMETHOXAZOLE/TRIMETHOPRIM 800MG/160MG D.S. TABLET PO SCH ×2 (10:31→22:09)
[2018-01-22] MEDS: DIVALPROEX SODIUM 250 MG TABLET E.C. PO SCH ×2 (10:31→22:08)
[2018-01-22] MEDS: CITALOPRAM HYDROBROMIDE 20 MG TABLET (FP) PO SCH (10:31)
[2018-01-22] MEDS: BUDESONIDE/FORMETEROL FUMARATE 80/4.5 mcg INHALER IH SCH ×2 (10:32→22:15)
--- NOTE | 2018-01-22 10:35 | PN ---
[facility] Progress Note (SOAP) Subjective: feeling better no tremor less sweat no gi distress discuss aftercare with staff Objective: 01/22/18 10:33 Vital Signs Temperature 98.2 F 01/22/18 09:49 Pulse Rate 82 01/22/18 09:49 Respiratory Rate 17 01/22/18 09:49 Blood Pressure 114/63 01/22/18 09:49 O2 Sat by Pulse Oximetry (%) Laboratory Last Values WBC 6.1 K/mm3 (4.0-10.0) 01/21/18 07:30 RBC 4.07 M/mm3 (3.60-5.2) 01/21/18 07:30 Hgb 12.4 GM/dL (10.7-15.3) 01/21/18 07:30 Hct 38.5 % (32.4-45.2) 01/21/18 07:30 MCV 94.6 fl (80-96) 01/21/18 07:30 MCH 30.5 pg (25.7-33.7) 01/21/18 07:30 MCHC 32.3 g/dl (32.0-36.0) 01/21/18 07:30 RDW 15.5 % (11.6-15.6) 01/21/18 07:30 Plt Count 337 K/MM3 (134-434) 01/21/18 07:30 MPV 8.0 fl (7.5-11.1) 01/21/18 07:30 Sodium 141 mmol/L (136-145) 01/21/18 07:30 Potassium 3.8 mmol/L (3.5-5.1) 01/21/18 07:30 Chloride 102 mmol/L (98-107) 01/21/18 07:30 Carbon Dioxide 31 mmol/L (21-32) 01/21/18 07:30 Anion Gap 8 MMOL/L (8-16) 01/21/18 07:30 BUN 13 mg/dL (7-18) 01/21/18 07:30 Creatinine 0.7 mg/dL (0.55-1.3) 01/21/18 07:30 Creat Clearance w eGFR > 60 (>60) 01/21/18 07:30 Random Glucose 99 mg/dL (74-106) 01/21/18 07:30 Calcium 8.7 mg/dL (8.5-10.1) 01/21/18 07:30 Total Bilirubin 0.2 mg/dL (0.2-1) 01/21/18 07:30 AST 40 U/L (15-37) H 01/21/18 07:30 ALT 57 U/L (13-61) 01/21/18 07:30 Alkaline Phosphatase 78 U/L (45-117) 01/21/18 07:30 Total Protein 7.0 g/dl (6.4-8.2) 01/21/18 07:30 Albumin 3.5 g/dl (3.4-5.0) 01/21/18 07:30 Urine Color Yellow 01/20/18 23:45 Urine Appearance Turbid 01/20/18 23:45 Urine pH 5.0 (5.0-8.0) 01/20/18 23:45 Ur Specific [place] 1.027 (1.010-1.035) 01/20/18 23:45 Urine Protein 1+ (NEGATIVE) H 01/20/18 23:45 Urine Glucose (UA) Negative (NEGATIVE) 01/20/18 23:45 Urine Ketones Negative (NEGATIVE) 01/20/18 23:45 Urine Blood 1+ (NEGATIVE) H 01/20/18 23:45 Urine Nitrite Negative (NEGATIVE) 01/20/18 23:45 Urine Bilirubin Negative (<2.0 mg/dL) 01/20/18 23:45 Urine Urobilinogen 2.0 mg/dL (0.2-1.0) H 01/20/18 23:45 Ur Leukocyte Esterase 2+ (NEGATIVE) H 01/20/18 23:45 Urine WBC (Auto) 190 /hpf (3-5) 01/20/18 23:45 Urine RBC (Auto) 15 /hpf (0-3) 01/20/18 23:45 Ur Epithelial Cells Few /HPF (FEW) 01/20/18 23:45 Urine Bacteria Few /hpf (NONE SEEN) 01/20/18 23:45 Urine Mucus Many 01/20/18 23:45 RPR Titer Nonreactive (NONREACTIVE) 01/21/18 07:30 lab noted continue bactrim ds Assessment: 01/22/18 10:34 mild withdrawal sx Plan: medically supervised detox
[2018-01-22] MEDS: THIAMINE HCL 100 MG TABLET (FP) PO SCH (22:09)
[2018-01-22] MEDS: MONTELUKAST NA 10 MG TABLET PO SCH (22:09)
[2018-01-22] MEDS: chlordiazePOXIDE 5 MG CAPSULE PO SCH (22:09)
[2018-01-22] MEDS: traZODone HCL 50 MG TABLET (FP) PO SCH (22:09)
[2018-01-23] MEDS: chlordiazePOXIDE 5 MG CAPSULE PO SCH ×3 (05:23→17:22)
[2018-01-23] MEDS: CITALOPRAM HYDROBROMIDE 20 MG TABLET (FP) PO SCH (10:08)
[2018-01-23] MEDS: PRENATAL VITAMINS W/ FOLIC ACID TABLET (FP) PO SCH (10:08)
[2018-01-23] MEDS: BUDESONIDE/FORMETEROL FUMARATE 80/4.5 mcg INHALER IH SCH ×2 (10:08→22:04)
[2018-01-23] MEDS: DIVALPROEX SODIUM 250 MG TABLET E.C. PO SCH ×2 (10:08→22:03)
[2018-01-23] MEDS: SULFAMETHOXAZOLE/TRIMETHOPRIM 800MG/160MG D.S. TABLET PO SCH ×2 (10:08→22:03)
--- NOTE | 2018-01-23 12:19 | PN ---
[facility] Progress Note Note: PATIENT CONTINUES WITH DETOX REGIMEN. ANXIOUS AND GUARDED. C/O NIGHT SWEATS AND MILD NAUSEA. Laboratory Tests 01/20/18 01/21/18 01/21/18 23:45 07:30 07:30 WBC 6.1 RBC 4.07 Hgb 12.4 Hct 38.5 MCV 94.6 MCH 30.5 MCHC 32.3 RDW 15.5 Plt Count 337 MPV 8.0 Sodium 141 Potassium 3.8 Chloride 102 Carbon Dioxide 31 Anion Gap 8 BUN 13 Creatinine 0.7 Creat Clearance w eGFR > 60 Random Glucose 99 Calcium 8.7 Total Bilirubin 0.2 AST 40 H ALT 57 Alkaline Phosphatase 78 Total Protein 7.0 Albumin 3.5 Urine Color Yellow Urine Appearance Turbid Urine pH 5.0 Ur Specific [place] 1.027 Urine Protein 1+ H Urine Glucose (UA) Negative Urine Ketones Negative Urine Blood 1+ H Urine Nitrite Negative Urine Bilirubin Negative Urine Urobilinogen 2.0 H Ur Leukocyte Esterase 2+ H Urine WBC (Auto) 190 Urine RBC (Auto) 15 Ur Epithelial Cells Few Urine Bacteria Few Urine Mucus Many RPR Titer 01/21/18 07:30 WBC RBC Hgb Hct MCV MCH MCHC RDW Plt Count MPV Sodium Potassium Chloride Carbon Dioxide Anion Gap BUN Creatinine Creat Clearance w eGFR Random Glucose Calcium Total Bilirubin AST ALT Alkaline Phosphatase Total Protein Albumin Urine Color Urine Appearance Urine pH Ur Specific [place] Urine Protein Urine Glucose (UA) Urine Ketones Urine Blood Urine Nitrite Urine Bilirubin Urine Urobilinogen Ur Leukocyte Esterase Urine WBC (Auto) Urine RBC (Auto) Ur Epithelial Cells Urine Bacteria Urine Mucus RPR Titer Nonreactive PE: ALERT AND ORIENTED X 3 SKIN WARM AND DRY EXT FULL ROM, AMB AB CHANTEL, NO TREMORS ANXIOUS/GUARDED WITHDRAWAL SX CONTINUE DETOX ENCOURAGE ORAL FLUIDS FOR D/C IN AM CONTINUE TO MONITOR
[2018-01-23 17:45] VITALS: TEMP 98.1
[2018-01-23] MEDS: traZODone HCL 50 MG TABLET (FP) PO SCH (22:03)
[2018-01-23] MEDS: THIAMINE HCL 100 MG TABLET (FP) PO SCH (22:03)
[2018-01-23] MEDS: MONTELUKAST NA 10 MG TABLET PO SCH (22:03)
[2018-01-23] MEDS: chlordiazePOXIDE HCL 10 MG CAPSULE PO SCH (22:03)
[2018-01-24] MEDS: chlordiazePOXIDE HCL 10 MG CAPSULE PO SCH (05:34)
[2018-01-24 06:00] VITALS: BP 108/57; PULSE 72
--- NOTE | 2018-01-24 09:20 | PN ---
[facility] Progress Note (SOAP) Subjective: Denies any complaints' verbalized feeling great Objective: 01/24/18 09:16 Met in room eating in no distress Vital Signs Temperature 98.1 F 01/24/18 05:59 Pulse Rate 72 01/24/18 05:59 Respiratory Rate 18 01/24/18 05:59 Blood Pressure 108/57 L 01/24/18 05:59 O2 Sat by Pulse Oximetry (%) Assessment: 01/24/18 09:20 detox successfully completed Plan: for d/c
--- NOTE | 2018-01-24 09:32 | DS ---
[facility] Detox Discharge Summary Admission Date: 01/20/18 Discharge Date: 01/24/18 - History Additional Comments: Pt being discharged. Pt completed detox Pt will go home and do outpatient @[facility] in [place] and follow up with her PMD Dr Jefferson of [facility] in 2wks. Pt's meds already sent to her pharmacy and she verbalized being aware to go bean picker. Pertinent Past History: Asthma Anemia Psych - Physical Exam Results Vital Signs: Vital Signs Temperature 98.1 F 01/24/18 05:59 Pulse Rate 72 01/24/18 05:59 Respiratory Rate 18 01/24/18 05:59 Blood Pressure 108/57 L 01/24/18 05:59 O2 Sat by Pulse Oximetry (%) Pertinent Admission Physical Exam Findings: withdrawal sx - Treatment Hospital Course: Detox Protocol Followed, Detoxed Safely, Responded well, Discharged Condition Good, Rehab Referral Accepted - Medication Discharge Medications: Ambulatory Orders Citalopram Hydrobromide [Celexa -] 20 mg PO DAILY #30 tablet 09/23/17 Divalproex [Depakote -] 250 mg PO BID #60 tablet.ec 09/23/17 Fluticasone/Salmeterol [Advair 250-50 Diskus] 1 each IH PRN 11/29/17 traZODone HCL [Trazodone HCl] 50 mg PO HS 11/29/17 Citalopram Hydrobromide [Celexa -] 20 mg PO DAILY #30 tablet 11/30/17 Montelukast Sodium [Singulair] 10 mg PO DAILY #14 tablet 01/22/18 Sulfamethoxazole/Trimethoprim [Bactrim DS -] 1 each PO BID #7 tablet 01/22/18 Fluconazole [Diflucan] 150 mg PO ONCE 1 Days #1 tablet 01/23/18 - Diagnosis (1) ASTHMA Current Visit: No Status: Active (2) Anxiety disorder Current Visit: No Status: Active (3) DEPRESSION Current Visit: No Status: Active (4) PTSD Current Visit: No Status: Active (5) Alcohol dependence with uncomplicated withdrawal Current Visit: No Status: Acute (6) Cannabis dependence Current Visit: No Status: Acute (7) Non compliance w medication regimen Current Visit: No Status: Acute (8) Bronchial asthma Current Visit: No Status: Chronic (9) Cocaine dependence Current Visit: No Status: Chronic (10) History of anemia Current Visit: No Status: Chronic (11) MDD (major depressive disorder), recurrent episode, moderate Current Visit: No Status: Chronic (12) Nicotine dependence Current Visit: No Status: Chronic Qualifiers: Nicotine product type: cigarettes Substance use status: uncomplicated Qualified Code(s): F17.210 - Nicotine dependence, cigarettes, uncomplicated (13) Opioid dependence with withdrawal Current Visit: No Status: Chronic (14) PTSD (post-traumatic stress disorder) Current Visit: No Status: Chronic (15) Bipolar disorder Current Visit: No Status: Suspected - AMA Did Patient Leave Against Medical Advice: No
[2018-01-24] MEDS: SULFAMETHOXAZOLE/TRIMETHOPRIM 800MG/160MG D.S. TABLET PO SCH (09:39)
[2018-01-24] MEDS: PRENATAL VITAMINS W/ FOLIC ACID TABLET (FP) PO SCH (09:39)
[2018-01-24] MEDS: DIVALPROEX SODIUM 250 MG TABLET E.C. PO SCH (09:39)
[2018-01-24] MEDS: CITALOPRAM HYDROBROMIDE 20 MG TABLET (FP) PO SCH (09:39)
[2018-01-24] MEDS: BUDESONIDE/FORMETEROL FUMARATE 80/4.5 mcg INHALER IH SCH (09:39)
== END 2018-01-24 09:45 | disposition home or self-care (01) | DRG 773 ==
LOC: YASAS 19:57 → Y6N 21:10
PROC: HZ2ZZZZ Detoxification Services for Substance Abuse Treatment (ICD-10-PCS; principal; 2018-01-20)
DX: F11.23 Opioid dependence with withdrawal (principal); F10.230 Alcohol dependence with withdrawal, uncomplicated; F14.20 Cocaine dependence, uncomplicated; F12.20 Cannabis dependence, uncomplicated; F17.210 Nicotine dependence, cigarettes, uncomplicated; F33.1 Major depressive disorder, recurrent, moderate; F41.9 Anxiety disorder, unspecified; F32.9 Major depressive disorder, single episode, unspecified; F31.9 Bipolar disorder, unspecified; J45.909 Unspecified asthma, uncomplicated; Z86.2 Personal history of diseases of the blood and blood-forming organs and certain disorders involving the immune mechanism; Z91.14 Patient's other noncompliance with medication regimen
CPT/HCPCS: 36415; 80053; 81003; 81015; 85027; 86593